=== PATIENT | female | born 1990 | race Caucasian/White ===

== ENCOUNTER 2016-12-24 07:06 | Inpatient (IN) | payer OTHER ==
[2016-12-24] MEDS ORDERED: Oxytocin in LR* 20 UNITS/1,000 ML BAG IVPB SCH ×2 (08:00→22:00)
[2016-12-24 08:46] LABS: Hematocrit 35 % (35-47); Hemoglobin 11.8 g/dl (12.0-16.0); Mean Corpuscular HGB Conc 34 g/dl (31-36); Mean Corpuscular Hemoglobin 30 pg (27-31); Mean Corpuscular Volume 90 fL (80-97); Mean Platelet Volume 9 um3 (7.4-10.4); Red Blood Count 3.88 10^6/ul (4.0-5.4); Red Cell Distribution Width 14 % (10.5-15); White Blood Count 12.3 10^3/ul (3.5-10.8)
[2016-12-24] MEDS ORDERED: OBEPIDURAL* 250 ML ONE (10:58)
[2016-12-24] MEDS ORDERED: fentaNYL* 50 MCG/ML 2 ML VIAL (100 MCG VIAL) ONE ×3 (11:28→20:52)
[2016-12-24] MEDS ORDERED: EPHEDrine (Pressors)* 50 MG/ML VIAL IV PUSH PRN ×2 (12:10)
[2016-12-24] MEDS ORDERED: Phenylephrine IV* 40 MCG/ML 10 ML SYRINGE IV PUSH PRN ×2 (12:10)
[2016-12-24] MEDS ORDERED: OBEPIDURAL* 250 ML EPIDURAL SCH (13:00)
[2016-12-24] MEDS ORDERED: ceFOXitin 2 GM IVPREMIX* 2 GM/50 ML BAG ONE (18:08)
[2016-12-24] MEDS ORDERED: OXYTOCIN* 10 UNITS/ML 1 ML VIAL ONE (18:11)
[2016-12-24] MEDS ORDERED: Morphine PF AMP (0.5MG/ML)* 5 MG/10 ML AMP ONE (18:24)
[2016-12-24] MEDS ORDERED: Remifentanil* 2 MG VIAL ONE (18:53)
[2016-12-24] MEDS: fentaNYL* 50 MCG/ML 2 ML VIAL (100 MCG VIAL) IV SLOW PU ONE ×3 (20:05→20:54)
[2016-12-24] MEDS ORDERED: oxyCODONE/Acetamin 5/325 MG* TAB ONE (21:16)
[2016-12-24] MEDS ORDERED: Acetaminophen TAB* 325 MG PO PRN (21:46)
[2016-12-24] MEDS ORDERED: Glycerin ADULT SUPP PR PRN (21:46)
[2016-12-24] MEDS ORDERED: Dibucaine 1% 28.35 GM TUBE PR PRN (21:46)
[2016-12-24] MEDS ORDERED: Witch Hazel PAD* JAR TOPICAL PRN (21:46)
[2016-12-24] MEDS ORDERED: fentaNYL* 50 MCG/ML 2 ML VIAL (100 MCG VIAL) IV PRN ×2 (22:42→23:05)
[2016-12-24] MEDS ORDERED: oxyCODONE/Acetamin 5/325 MG* TAB PO PRN (22:44)
[2016-12-24] MEDS ORDERED: Naloxone* 0.4 MG/ML 1 ML VIAL IV PRN (23:08)
[2016-12-24] MEDS ORDERED: Ondansetron INJ* 2 MG/ML VIAL IV PRN (23:08)
[2016-12-24] MEDS ORDERED: Naloxone* 2 MG in NS 0.9% 250 ML* 250 ML IV PRN (23:08)
[2016-12-24] MEDS ORDERED: diPHENhydraMINE IV* 50 MG/ML 1 ml VIAL (BENADRYL) IV PRN (23:08)
[2016-12-25] MEDS: Ibuprofen TAB* 600 MG PO PRN ×4 (00:57→21:03)
[2016-12-25] MEDS: oxyCODONE/Acetamin 5/325 MG* TAB PO PRN ×3 (03:59→18:47)
[2016-12-25 06:25] LABS: Hematocrit 27 % (35-47); Mean Corpuscular HGB Conc 33 g/dl (31-36); Mean Corpuscular Hemoglobin 30 pg (27-31); Mean Corpuscular Volume 90 fL (80-97); Mean Platelet Volume 8 um3 (7.4-10.4); Red Blood Count 3.03 10^6/ul (4.0-5.4); Red Cell Distribution Width 14 % (10.5-15); White Blood Count 11.9 10^3/ul (3.5-10.8)
[2016-12-25] MEDS: Simethicone CHEW TAB* 80 MG PO SCH ×4 (08:25→21:02)
[2016-12-25] MEDS: Docusate CAP* 100 MG PO SCH ×3 (08:25→21:02)
[2016-12-25] MEDS: Ferrous Gluconate TAB* 324 MG TAB PO SCH ×2 (08:25→21:02)
--- NOTE | 2016-12-25 11:45 | OP ---
DATE OF OPERATION: 12/24/16 - ROOM #[id number]-102 DATE OF : [birth year] SURGEON: Margo Cloud MD SAMPLE CHECKER: Roe Lewis CNM ANESTHESIOLOGIST: Nicanor Alvarez MD ANESTHESIA: Attempt of re-dosing epidural failed, spinal failed, general anesthesia. PRE-OP DIAGNOSIS: Intrauterine at 40-3/7 weeks, category 2 heart tracing. POST-OP DIAGNOSIS: Intrauterine at 40-3/7 weeks, category 2 heart tracing, delivered. OPERATIVE PROCEDURE: Primary low transverse section. INDICATIONS: The patient made it to fully dilated, -1, 0 station, began attempt to push, had a prolonged deceleration to the 70s for approximately 5 minutes. Baby with slow recovery. Given this episode and slow recovery and recurrent variables to the 90s in association with this prolonged deceleration, I recommended to proceed with section. The patient was taken to the operating room and while re-dosing attempt at epidural and spinal, she had another second prolonged deceleration to the low 80s for another 5 to 6 minutes. The patient ended up having a spinal for the main part of the procedure. However, felt the pain recur and mid case after the baby was delivered, underwent general endotracheal anesthesia. ESTIMATED BLOOD LOSS: 600 cc. URINE OUTPUT: 600 cc of clear yellow urine. FLUIDS: 2000 cc of crystalloid. FINDINGS: Revealed vertex male , right occiput anterior. Apgars were 9 and 9. No nuchal cord. Thin meconium noted. Normal-appearing tubes and ovaries. Normal-appearing placenta, manually extracted. Three-vessel cord intact. Male infant 7 pounds, 7 ounces. No evidence of retained placenta or membranes within uterine cavity. COMPLICATIONS: None apparent. DISPOSITION: Stable to recovery room. DESCRIPTION OF PROCEDURE: The patient was placed in dorsal lithotomy position. The abdomen was tested to appropriate level of anesthesia after failed dosing of epidural and then spinal. After prep and drape under sterile standard fashion testing to appropriate level for anesthesia, incision was made 2 fingerbreadths above the pubic symphysis after identification of the patient with universal protocol. This incision was then carried down through to the fascia. Fascia was scored in the midline, the fascial incision extended laterally and superiorly using curved Posada scissors. Fascia was superiorly and inferiorly from the rectus muscle using blunt and sharp dissection. The peritoneum was then entered bluntly. The peritoneal incision was extended bluntly. Bladder blade was inserted. Lower uterine segment was identified. The bladder flap was created with blunt and sharp dissection and an Allis was used to tent up on the lower uterine segment and an incision was made down to membranes and the incision was extended laterally and superiorly using bandage scissors, meconium thin stained fluid was noted. Infant was found to be wedged in the BRI position. Attempt was made at delivery of the head and then a vacuum was applied for delivery of the head. The anterior and posterior shoulder was delivered. Cord was then milked, clamped, cut, and infant was handed off to awaiting healthcare insurance sales agent. Appropriate cord blood was then obtained. The placenta was then manually extracted, noted to be intact 3- vessel cord without any abnormal appearances. The uterus was exteriorized, wrapped in warm moist laparotomy sponges, and the uterine cavity was explored and noted to be free of any membranes or placental tissue. Broad Allis was used to clamp the hysterotomy site and the hysterotomy site was reapproximated, the first layer was running 0 Vicryl locked x2 and the second layer running 0 Vicryl imbricated x1. The uterus was returned intraabdominally. Colic gutters were lavaged. The patient was experiencing more pain and at this point, the patient did undergo general endotracheal anesthesia. The peritoneum was then clamped. The hysterotomy site was visualized. There was a small area of bleeding in the right to midline of the hysterotomy site and this was made hemostatic with 0 Vicryl in figure-of-8 fashion. After confirming hemostasis of the hysterotomy site and visualizing normal tubes and ovaries and visualizing normal uterus, the peritoneum was then reapproximated using 3-0 Vicryl in a running fashion. The subfascial area was visualized, noted to be hemostatic. The fascia was then reapproximated using 0 Vicryl x2 in a running fashion. The subcu was lavaged, hemostasis was assured with Bovie coagulation and the skin subcuticular layer as it was greater than 2 cm was reapproximated using 3-0 Vicryl in an interrupted fashion. The skin was then reapproximated using a 4-0 Monocryl in a subcuticular fashion. Mastisol and Steri's were applied. All sponge, instrument, and blade counts were correct throughout the case. The patient tolerated the procedure well and went to recovery room in stable condition. [id number] #: [id number] MTDD
[2016-12-25] MEDS: fentaNYL* 50 MCG/ML 2 ML VIAL (100 MCG VIAL) IV SLOW PU ONE (13:54)
[2016-12-26] MEDS: oxyCODONE/Acetamin 5/325 MG* TAB PO PRN ×4 (03:54→21:28)
[2016-12-26] MEDS: Docusate CAP* 100 MG PO SCH ×3 (08:08→21:20)
[2016-12-26] MEDS: Simethicone CHEW TAB* 80 MG PO SCH ×4 (08:08→21:20)
[2016-12-26] MEDS: Ibuprofen TAB* 600 MG PO PRN ×3 (08:08→21:20)
[2016-12-26] MEDS: Ferrous Gluconate TAB* 324 MG TAB PO SCH ×2 (08:08→21:20)
[2016-12-27] MEDS: oxyCODONE/Acetamin 5/325 MG* TAB PO PRN ×2 (00:02→07:10)
[2016-12-27] MEDS: Ibuprofen TAB* 600 MG PO PRN (07:10)
[2016-12-27 08:08] VITALS: BP 111/71
[2016-12-27] MEDS: Simethicone CHEW TAB* 80 MG PO SCH (08:52)
[2016-12-27] MEDS: Docusate CAP* 100 MG PO SCH (08:52)
[2016-12-27] MEDS: Ferrous Gluconate TAB* 324 MG TAB PO SCH (08:52)
== END 2016-12-27 13:18 | disposition home or self-care (01) | DRG 540 ==
LOC: MCHOBOUT 07:06 → MCHOB 07:59
PROVIDERS: ADMIT Obstetrics & Gynecology; ATTEND Obstetrics & Gynecology
PROC: 4A1HXCZ Monitoring of Products of Conception, Cardiac Rate, External Approach (ICD-10-PCS; 2016-12-24)
PROC: 4A1H7CZ Monitoring of Products of Conception, Cardiac Rate, Via Natural or Artificial Opening (ICD-10-PCS; 2016-12-24)
PROC: 10H073Z Insertion of Monitoring Electrode into Products of Conception, Via Natural or Artificial Opening (ICD-10-PCS; 2016-12-24)
PROC: 10D00Z1 Extraction of Products of Conception, Low, Open Approach (ICD-10-PCS; principal; 2016-12-24 18:05)
DX: O48.0 Post-term pregnancy (principal); J45.909 Unspecified asthma, uncomplicated; Z3A.40 40 weeks gestation of pregnancy; Z37.0 Single live birth; O99.824 Streptococcus B carrier state complicating childbirth; O99.52 Diseases of the respiratory system complicating childbirth; O76 Abnormality in fetal heart rate and rhythm complicating labor and delivery; O77.0 Labor and delivery complicated by meconium in amniotic fluid; O90.81 Anemia of the puerperium
CPT/HCPCS: 36415; 85025; 86850; 86900; 86901; A9270-GY; J0694; J2540; J2590; J3010